=== PATIENT | female | born 1970 | race Caucasian/White ===

== ENCOUNTER 2017-10-01 09:53 | Emergency (ER) | payer MEDICAID ==
[~2017-10-01] VITALS: Ht 154.9 cm; Wt 149.7 kg
[2017-10-01 10:01] VITALS: BP 108/77
--- NOTE | 2017-10-01 10:10 | NUR ---
PT C/O RT KNEE PAIN X 3 DAYS. DENIES INJURY, -SWELLING, -DEFORMITY, -BRUISING. +CSM TO RT FOOT, CAP REFILL < 3 SEC. PT AMBULATES WITH SLOW STEADY GAIT TO BED 3. NAD NOTED/STATED OTHERWISE. PENDING MD LOO.
--- NOTE | 2017-10-01 10:21 | NUR ---
Patient being evaluated by DR GOODE at bedside.
--- NOTE | 2017-10-01 10:34 | NUR ---
Note yesi in EDM - 10/01/17 at 1037 by [facility] PT INAPPROPRIATELY GRABBING THE US TECHS BREAST DURING THE ABD US. PT INSTRUCTED NOT TO DO ANYTHING SEXUALLY INAPPROPRIATE LIKE THIS AGAIN TO HOSPITAL STAFF OR PD WILL BE CALLED. PT VERBALIZES UNDERSTANDIND WITH "OK."
[2017-10-01 11:13] VITALS: BP 111/78
--- NOTE | 2017-10-01 11:45 | NUR ---
Patient discharged with v/s stable. Written and verbal after care instructions given and explained. Patient alert, oriented and verbalized understanding of instructions. Ambulatory with steady gait. All questions addressed prior to discharge. ID band removed. Patient advised to follow up with PMD. Rx of TRAMADAL given. Patient educated on indication of medication including possible reaction and side effects. Opportunity to ask questions provided and answered.
== END 2017-10-01 11:13 | disposition home or self-care (01) ==
LOC: MED 09:53
DX: M17.11 Unilateral primary osteoarthritis, right knee (principal); E11.9 Type 2 diabetes mellitus without complications; I10 Essential (primary) hypertension
CPT/HCPCS: 29505; 73562; 99284; Q0092

== ENCOUNTER 2019-02-11 18:16 | Emergency (ER) | payer MEDICAID ==
[~2019-02-11] VITALS: Ht 154.9 cm; Wt 127.0 kg
[2019-02-11 18:30] VITALS: BP 142/72
[2019-02-11] MEDS: LIDOCAINE 2% 1000 MG/50 ML VIAL INJ ONE (20:11)
[2019-02-11] MEDS: BACITRACIN OINT 500 UNITS/GM PKT TP ONE (20:21)
[2019-02-11 20:26] VITALS: BP 142/72
== END 2019-02-11 20:28 | disposition home or self-care (01) ==
LOC: MED 18:16
DX: L03.011 Cellulitis of right finger (principal); E11.9 Type 2 diabetes mellitus without complications; I10 Essential (primary) hypertension; Z90.49 Acquired absence of other specified parts of digestive tract
CPT/HCPCS: 10060; 73140; 99283; J2001

== ENCOUNTER 2023-07-01 19:07 | Emergency (ER) | payer MEDICAID ==
[~2023-07-01] VITALS: Ht 154.9 cm; Wt 127.0 kg
[2023-07-01 19:14] VITALS: BP 111/67; PULSE 106; RESP 20; TEMP 97.6; O2SAT 99
[2023-07-01] MEDS: HYDROcodone/APAP 7.5/325 MG 1 TAB PO ONE (21:27)
[2023-07-01] MEDS: KETOROLAC 30 MG/ML VIAL IM ONE (21:27)
[2023-07-01] MEDS ORDERED: DICL100G32 TP (21:50)
[2023-07-01] MEDS ORDERED: ACET-8905 PO (21:50)
== END 2023-07-01 21:56 | disposition home or self-care (01) ==
LOC: MED 19:07
DX: G89.29 Other chronic pain (principal); M25.561 Pain in right knee; E11.9 Type 2 diabetes mellitus without complications; I10 Essential (primary) hypertension; F32.9 Major depressive disorder, single episode, unspecified; M19.90 Unspecified osteoarthritis, unspecified site; F17.210 Nicotine dependence, cigarettes, uncomplicated
CPT/HCPCS: 73562; 96372; 99283; J1885